=== PATIENT | male | born 2000 ===

== ENCOUNTER 2020-10-02 07:23 | Outpatient (REF) | payer OTHER, SELFPAY | END 2020-10-02 07:24 | disposition home or self-care (01) | LOC: HO.HOSX 07:23 | PROVIDERS: Visit Provider Physician Assistant | DX: Z13.89 Encounter for screening for other disorder (principal) ==

== ENCOUNTER 2020-10-03 15:05 | Outpatient (REF) | payer OTHER, SELFPAY ==
--- NOTE | ~2020-10-03 | XR_ITS ---
EXAMINATION: XR ANKLE, RIGHT CLINICAL INFORMATION: Ankle pain COMPARISON: None TECHNIQUE: AP, lateral, and mortise views of the right ankle. FINDINGS: There is a 0.9 cm area of subchondral lucency which some associated sclerosis seen at the lateral talus consistent with osteochondritis dissecans. This can be associated with instability of the ankle joint. No other significant abnormality is seen. 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
== END 2020-10-03 15:06 | disposition home or self-care (01) ==
LOC: HO.XRAY 15:05
PROVIDERS: PCP Pediatrics; Visit Provider Physician Assistant
DX: M25.571 Pain in right ankle and joints of right foot (principal)
CPT/HCPCS: 73610; 99202